=== PATIENT | male | born 1950 | race Caucasian/White ===

== ENCOUNTER 2018-01-16 09:32 | Emergency (ER) | payer BC, MEDICARE ==
[2018-01-16 09:59] VITALS: TEMP 98
[2018-01-16] MEDS ORDERED: SODIUM CHLORIDE 0.9% 1000ML 500 ML IV SCH (10:00)
[2018-01-16 10:23] LABS: BASOPHILS % (AUTO) 1 % (0-3); EOSINOPHILS % (AUTO) 1 % (0-9); HEMATOCRIT 31 % (39-53); HEMOGLOBIN 9.7 gm/dl (13.5-17.7); LYMPHOCYTES % (AUTO) 12.24 % (10-50); MEAN CORPUSCULAR HEMOGLOBIN 27.7 pg (27.0-32.0); MEAN CORPUSCULAR HGB CONC 31.1 gm/dl (32.0-36.0); MEAN CORPUSCULAR VOLUME 89 fL (80-100)
[2018-01-16 10:33] LABS: INR 1.06 (0.86-1.12)
[2018-01-16 10:37] LABS: ALBUMIN 2.9 gm/dl (3.4-5.0); BILIRUBIN,TOTAL 0.4 mg/dl (0.2-1.0); CALCIUM 8.3 mg/dl (8.5-10.1); CARBON DIOXIDE 22.5 mEq/L (21-32); CREATININE 1.55 mg/dl (0.80-1.30); POTASSIUM 4.8 mMol/L (3.5-5.1); TOTAL PROTEIN 5.9 gm/dl (6.4-8.2)
[2018-01-16] MEDS ORDERED: PANTOPRAZOLE SODIUM 40 MG/10 ML PDS IV ONE (10:42)
[2018-01-16] MEDS ORDERED: DILTIAZEM 5 MG/ML SOL IV ONE ×3 (10:48→11:16)
[2018-01-16] MEDS ORDERED: PANTOPRAZOLE SODIUM 40 MG/10 ML PDS ONE (10:53)
[2018-01-16 11:12] VITALS: RESP 20
[2018-01-16] MEDS ORDERED: SODIUM CHLORIDE 0.9% 1000ML 1,000 ML IV SCH (11:15)
[2018-01-16 11:44] VITALS: BP 114/70; PULSE 102; O2SAT 98
== END 2018-01-16 11:32 | disposition short-term general hospital (02) ==
LOC: ED 09:32
DX: K92.2 Gastrointestinal hemorrhage, unspecified (principal); I48.91 Unspecified atrial fibrillation; Z79.01 Long term (current) use of anticoagulants
CPT/HCPCS: 36415; 80053; 82150; 82272; 85025; 85610; 85730; 93005; 96365; 96374; 96375; 99284; 99285; J3490

== ENCOUNTER 2018-10-12 17:26 | Emergency (ER) | payer MEDICARE, BC ==
[2018-10-12 19:19] VITALS: TEMP 97.1
[2018-10-12 19:31] VITALS: BP 116/76; PULSE 73; RESP 18; O2SAT 94
== END 2018-10-12 18:50 | disposition home or self-care (01) | DRG 921 ==
LOC: ED 17:26
DX: K91.840 Postprocedural hemorrhage of a digestive system organ or structure following a digestive system procedure (principal); Z79.4 Long term (current) use of insulin
CPT/HCPCS: 99282

== ENCOUNTER 2018-10-26 08:28 | Day surgery (SDC) | payer MEDICARE, BC ==
[~2018-10-26 08:28] MED LIST: LIDOCAINE HCL 1% MPF 30 SOL ONE; PROPOFOL 500 MG/50 ML EMU IV ONE
[2018-10-26 10:26] VITALS: TEMP 99.7
[2018-10-26 10:56] VITALS: BP 118/78; PULSE 94; RESP 20; O2SAT 95
== END 2018-10-26 11:17 | disposition home or self-care (01) | DRG 951 ==
LOC: SURG 08:28
PROVIDERS: ATTEND Internal Medicine Gastroenterology
DX: Z12.11 Encounter for screening for malignant neoplasm of colon (principal); E11.9 Type 2 diabetes mellitus without complications; Z79.4 Long term (current) use of insulin; Z86.010 Personal history of colon polyps; D12.4 Benign neoplasm of descending colon; K64.8 Other hemorrhoids
CPT/HCPCS: 82962; J2001; J2704